=== PATIENT | female | born 2000 | race Caucasian/White ===

== ENCOUNTER 2021-08-11 07:30 | Inpatient (IN) | payer OTHER ==
[2021-08-11 09:14] LABS: BASO % 0.5 % (0-2.0); EOS % 1.2 % (0-4.5); HEMATOCRIT 36.7 % (32.4-45.2); HEMOGLOBIN 12.3 GM/dL (10.7-15.3); LYMPH % 26.4 % (8-40); MCH 27.8 pg (25.7-33.7); MCHC 33.6 g/dl (32.0-36.0); MEAN CELL VOLUME 82.8 fl (80-96); MEAN PLT VOLUME 8.6 fl (7.5-11.1); MONO % 6.2 % (3.8-10.2); NEUT % 65.7 % (42.8-82.8); PLATELET COUNT 323 10^3/uL (134-434); RBC 4.44 M/mm3 (3.60-5.2); RDW 14.9 % (11.6-15.6); WHITE BLOOD COUNT 10.8 K/mm3 (4.0-10.0)
[2021-08-11 09:21] LABS: INR 0.89 (0.83-1.09); PROTHROMBIN TIME (PATIENT) 10.4 SEC (9.7-13.0)
[2021-08-11 09:23] LABS: ACTIVATED PTT 32.7 SECONDS (25.2-36.5)
[2021-08-11 09:32] VITALS: BMI 45.3
[2021-08-11 09:36] LABS: CALCIUM 8.9 mg/dL (8.5-10.1)
[2021-08-11 09:37] LABS: BLOOD UREA NITROGEN 11.6 mg/dL (7-18)
[2021-08-11 09:40] LABS: CREATININE 0.5 mg/dL (0.55-1.3)
[2021-08-11] MEDS ORDERED: AMPICILLIN SODIUM 2 GM VIAL ONE (10:24)
[2021-08-11] MEDS ORDERED: AMPICILLIN - 2 GM in SODIUM CHLORIDE 100 ML IVPB ONE (10:30)
[2021-08-11] MEDS ORDERED: FENTANYL/BUPIVACAINE/NS/PF - PCEA - 50 ML DISP.SYRIN EP ONE ×3 (11:30→16:18)
[2021-08-11] MEDS ORDERED: PCA PUMP NR ONE (11:30)
[2021-08-11] MEDS ORDERED: NALOXONE HCL 0.4 MG/ML VIAL IVPUSH PRN (12:20)
[2021-08-11] MEDS ORDERED: OXYTOCIN 30 UNITS in 0.9% NS 30 UNIT/500 ML INFUS.BAG IVPB ONE (12:23)
[2021-08-11] MEDS ORDERED: FENTANYL/BUPIVACAINE/NS/PF - PCEA - 50 ML DISP.SYRIN EP SCH (12:30)
[2021-08-11] MEDS: PRENATAL VITAMINS W/ FOLIC ACID TABLET (FP) PO SCH (12:40)
[2021-08-11 13:11] LABS: HIV INTERPRETATION NEGATIVE (NEGATIVE)
[2021-08-11] MEDS ORDERED: OXYTOCIN 30 UNITS in 0.9% NS 30 UNIT/500 ML INFUS.BAG IVPB SCH (13:45)
[2021-08-11] MEDS ORDERED: AMPICILLIN - 1 GM in SODIUM CHLORIDE 100 ML IVPB SCH (14:30)
[2021-08-11] MEDS ORDERED: BUPIVACAINE HCL/PF 0.25% (2.5MG/ML) 10 ML VIAL ONE (16:17)
[2021-08-11] MEDS ORDERED: OXYTOCIN 20 UNITS in 0.9% NS 20 UNIT/1,000 ML INFUS.BAG IV ONE ×2 (17:30→21:51)
[2021-08-11] MEDS ORDERED: BENZOCAINE 20% 57 GM BOTTLE TP PRN (18:55)
[2021-08-11] MEDS ORDERED: IBUPROFEN 600 MG TABLET (FP) PO PRN (18:55)
[2021-08-11] MEDS ORDERED: ACETAMINOPHEN 325 MG TABLET (FP) PO PRN (18:55)
[2021-08-11] MEDS ORDERED: oxyCODONE HCL 5 MG TABLET PO PRN (18:55)
[2021-08-11] MEDS ORDERED: BISACODYL 10 MG SUPP.RECT RC PRN (18:55)
[2021-08-11] MEDS ORDERED: WITCH HAZEL 50% (TUCKS) 40 PAD/JAR PAD TP PRN (18:55)
[2021-08-11] MEDS ORDERED: BENZOCAINE 28 GM HEMORRHOIDAL OINTMENT TP PRN (18:55)
[2021-08-11] MEDS ORDERED: OXYTOCIN 20 UNITS in 0.9% NS 20 UNIT/1,000 ML INFUS.BAG IV SCH (19:00)
[2021-08-11 19:05] LABS: CORD BASE EXCESS -11.8 mmol/L (0-2); CORD BASE EXCESS -12.2 mmol/L (0-2); CORD HCO3 17.7 mmHg (20-29); CORD HCO3 19.2 mmHg (20-29); CORD PCO2 67.9 mmHg (30-78); CORD pH 7.069 (7.14-7.44); CORD pH 7.134 (7.14-7.44)
[2021-08-11] MEDS ORDERED: oxyCODONE HCL 5 MG TABLET ONE (19:32)
[2021-08-11] MEDS ORDERED: METHYLERGONOVINE MALEATE 0.2 MG/1 ML AMP IM ONE (19:45)
[2021-08-11 21:18] LABS: HEMATOCRIT 30.4 % (32.4-45.2); MCH 27.4 pg (25.7-33.7); MCHC 32.8 g/dl (32.0-36.0); MEAN CELL VOLUME 83.5 fl (80-96); MEAN PLT VOLUME 8.6 fl (7.5-11.1); PLATELET COUNT 318 10^3/uL (134-434); RBC 3.65 M/mm3 (3.60-5.2); RDW 14.9 % (11.6-15.6); WHITE BLOOD COUNT 20.4 K/mm3 (4.0-10.0)
[2021-08-11 22:59] LABS: ANISOCYTOSIS 0; HELMET CELLS 0; HOWELL-JOLLY BODIES 0; MACROCYTOSIS 0; OVALOCYTE 0; PLATELET ESTIMATE NORMAL; ROULEAU 0; SICKELED CELLS 0; TARGET CELLS 0; TEAR DROP CELLS 0; TOXIC GRANULATION 0
[2021-08-12 08:52] LABS: BASO % 0.2 % (0-2.0); EOS % 0.3 % (0-4.5); HEMATOCRIT 22.4 % (32.4-45.2); HEMOGLOBIN 7.3 GM/dL (10.7-15.3); LYMPH % 23.3 % (8-40); MCH 27.4 pg (25.7-33.7); MCHC 32.8 g/dl (32.0-36.0); MEAN CELL VOLUME 83.4 fl (80-96); MEAN PLT VOLUME 8.5 fl (7.5-11.1); MONO % 7.4 % (3.8-10.2); NEUT % 68.8 % (42.8-82.8); PLATELET COUNT 255 10^3/uL (134-434); RBC 2.68 M/mm3 (3.60-5.2); RDW 15.3 % (11.6-15.6); WHITE BLOOD COUNT 15.3 K/mm3 (4.0-10.0)
[2021-08-12] MEDS: PRENATAL VITAMINS W/ FOLIC ACID TABLET (FP) PO SCH (09:13)
[2021-08-12] MEDS ORDERED: SENNOSIDES/DOCUSATE COMBO (SENNA PLUS) TABLET (UD) PO PRN (22:00)
[2021-08-12 23:57] LABS: BASO % 0.3 % (0-2.0); EOS % 0.8 % (0-4.5); HEMATOCRIT 25.8 % (32.4-45.2); HEMOGLOBIN 8.5 GM/dL (10.7-15.3); LYMPH % 33.9 % (8-40); MCH 27.8 pg (25.7-33.7); MCHC 33.1 g/dl (32.0-36.0); MEAN PLT VOLUME 8.5 fl (7.5-11.1); MONO % 6.3 % (3.8-10.2); NEUT % 58.7 % (42.8-82.8); PLATELET COUNT 226 10^3/uL (134-434); RBC 3.07 M/mm3 (3.60-5.2); RDW 14.8 % (11.6-15.6); WHITE BLOOD COUNT 11.8 K/mm3 (4.0-10.0)
[2021-08-13] MEDS: PRENATAL VITAMINS W/ FOLIC ACID TABLET (FP) PO SCH (09:22)
[2021-08-13 11:32] VITALS: BP 95/65; PULSE 98; TEMP 98.4
== END 2021-08-13 14:10 | disposition home or self-care (01) | DRG 560 ==
LOC: JDEL 07:30 → JLDR 08:45 → J3W 22:24
PROVIDERS: ADMIT Family Medicine; ATTEND Family Medicine
PROC: 0HQ9XZZ Repair Perineum Skin, External Approach (ICD-10-PCS; principal; 2021-08-11)
PROC: 10E0XZZ Delivery of Products of Conception, External Approach (ICD-10-PCS; 2021-08-11)
PROC: 30233N1 Transfusion of Nonautologous Red Blood Cells into Peripheral Vein, Percutaneous Approach (ICD-10-PCS; 2021-08-12)
DX: O70.0 First degree perineal laceration during delivery (principal); Z3A.39 39 weeks gestation of pregnancy; Z37.0 Single live birth
CPT/HCPCS: 36415; 36430; 36600; 59025; 59409; 80048; 82803; 85025; 85610; 85730; 86780; 86850; 86900; 86901; 86922; 87389; C9803; P9058; U0003; U0005

== ENCOUNTER 2022-01-23 15:22 | Emergency (ER) | payer OTHER ==
[2022-01-23 16:04] VITALS: TEMP 99.6; BMI 41.5
[2022-01-23] MEDS ORDERED: SODIUM CHLORIDE 1,000 ML IV STA (16:26)
[2022-01-23] MEDS ORDERED: ONDANSETRON 4 MG/2 ML VIAL IVPUSH ONE (16:27)
[2022-01-23] MEDS ORDERED: ACETAMINOPHEN 1000 MG/100 ML BAG IVPB ONE (16:27)
[2022-01-23] MEDS ORDERED: ONDANSETRON 4 MG/2 ML VIAL ONE (16:48)
[2022-01-23] MEDS ORDERED: ACETAMINOPHEN INJECTION 100 ML IVPB ONE (16:48)
[2022-01-23 17:19] LABS: BASO % 0.3 % (0-2.0); EOS % 0.3 % (0-4.5); HEMATOCRIT 33.2 % (32.4-45.2); HEMOGLOBIN 10.8 GM/dL (10.7-15.3); LYMPH % 13.1 % (8-40); MCH 23.7 pg (25.7-33.7); MCHC 32.6 g/dl (32.0-36.0); MEAN CELL VOLUME 72.6 fl (80-96); MONO % 4.8 % (3.8-10.2); NEUT % 81.5 % (42.8-82.8); PLATELET COUNT 365 10^3/uL (134-434); RBC 4.58 M/mm3 (3.60-5.2); RDW 17.6 % (11.6-15.6); WHITE BLOOD COUNT 10.5 K/mm3 (4.0-10.0)
[2022-01-23 17:24] LABS: HCG,QUALITATIVE URINE Negative
[2022-01-23 17:25] LABS: EPI CELLS >36 /uL (0-25.1); HYALINE CASTS 10 /uL (0-3.1); URINE APPEARANCE TURBID; URINE BACTERIA 6356 /uL (0-1359); URINE BILIRUBIN NEGATIVE (NEGATIVE); URINE COLOR YELLOW; URINE GLUCOSE (UA) NEGATIVE (NEGATIVE); URINE KETONE TRACE (NEGATIVE); URINE LEUK ESTERASE 2+ (NEGATIVE); URINE NITRITE NEGATIVE (NEGATIVE); URINE PROTEIN 1+ (NEGATIVE); URINE RBC 12 /uL (0-23.9); URINE WBC 1093 /uL (0-25.8)
[2022-01-23 17:45] LABS: ALBUMIN 3.3 g/dl (3.4-5.0); CALCIUM 8.7 mg/dL (8.5-10.1)
[2022-01-23 17:48] LABS: CREATININE 0.5 mg/dL (0.55-1.3)
[2022-01-23 17:50] LABS: BILIRUBIN,TOTAL 0.4 mg/dL (0.2-1); TOT PROT 7.5 g/dl (6.4-8.2)
[2022-01-23 18:36] VITALS: BP 110/60; PULSE 18
== END 2022-01-23 18:38 | disposition home or self-care (01) ==
LOC: JER 15:22
PROC: 3E033NZ Introduction of Analgesics, Hypnotics, Sedatives into Peripheral Vein, Percutaneous Approach (ICD-10-PCS; principal; 2022-01-23)
PROC: 3E033GC Introduction of Other Therapeutic Substance into Peripheral Vein, Percutaneous Approach (ICD-10-PCS; 2022-01-23)
PROC: 3E0337Z Introduction of Electrolytic and Water Balance Substance into Peripheral Vein, Percutaneous Approach (ICD-10-PCS; 2022-01-23)
DX: K52.9 Noninfective gastroenteritis and colitis, unspecified (principal); N39.0 Urinary tract infection, site not specified
CPT/HCPCS: 36415; 80053; 81003; 83690; 84703; 85025; 87086; 99284-25

== ENCOUNTER 2022-03-10 15:01 | Emergency (ER) | payer OTHER ==
[2022-03-10 15:18] VITALS: BP 92/60; PULSE 76; TEMP 98.5; BMI 46.3
[2022-03-10 16:35] LABS: BASO % 0.3 % (0-2.0); EOS % 1.4 % (0-4.5); HEMATOCRIT 32.8 % (32.4-45.2); HEMOGLOBIN 10.8 GM/dL (10.7-15.3); LYMPH % 28.9 % (8-40); MCH 24.1 pg (25.7-33.7); MCHC 32.8 g/dl (32.0-36.0); MEAN CELL VOLUME 73.4 fl (80-96); MONO % 5.5 % (3.8-10.2); NEUT % 63.9 % (42.8-82.8); PLATELET COUNT 411 10^3/uL (134-434); RBC 4.46 M/mm3 (3.60-5.2); RDW 18.8 % (11.6-15.6); WHITE BLOOD COUNT 10.7 K/mm3 (4.0-10.0)
[2022-03-10 16:40] LABS: HCG,QUALITATIVE URINE Negative
[2022-03-10 16:41] LABS: EPI CELLS >36 /uL (0-25.1); HYALINE CASTS 14 /uL (0-3.1); URINE APPEARANCE TURBID; URINE BACTERIA 761 /uL (0-1359); URINE BILIRUBIN 1+ (NEGATIVE); URINE COLOR RED; URINE GLUCOSE (UA) NEGATIVE (NEGATIVE); URINE KETONE NEGATIVE (NEGATIVE); URINE LEUK ESTERASE 1+ (NEGATIVE); URINE NITRITE NEGATIVE (NEGATIVE); URINE PROTEIN 3+ (NEGATIVE); URINE RBC 1088 /uL (0-23.9); URINE UROBILINOGEN 0.2 mg/dL (0.2-1.0); URINE WBC 48 /uL (0-25.8)
[2022-03-10 17:18] LABS: BLOOD UREA NITROGEN 10.1 mg/dL (7-18); CALCIUM 8.9 mg/dL (8.5-10.1)
[2022-03-10 17:19] LABS: ALBUMIN 3.4 g/dl (3.4-5.0)
[2022-03-10 17:22] LABS: CREATININE 0.5 mg/dL (0.55-1.3)
[2022-03-10 17:24] LABS: BILIRUBIN,TOTAL 0.2 mg/dL (0.2-1); TOT PROT 7.7 g/dl (6.4-8.2)
== END 2022-03-10 19:37 | disposition home or self-care (01) ==
LOC: JER 15:01
DX: O20.9 Hemorrhage in early pregnancy, unspecified (principal); Z3A.09 9 weeks gestation of pregnancy
CPT/HCPCS: 36415; 76817-TC; 80053; 81003; 84702; 84703; 85025; 86850; 86900; 86901; 87086; 87491; 87591; 99284-25

== ENCOUNTER 2022-06-28 22:48 | Emergency (ER) | payer OTHER ==
[2022-06-28 23:04] VITALS: BP 101/68; PULSE 95; RESP 17; TEMP 98.7; BMI 41.5
[2022-06-29] MEDS ORDERED: DEXAMETHASONE LIQUID 0.5 MG/5 ML PO ONE (05:36)
[2022-06-29] MEDS ORDERED: IBUPROFEN 600 MG TABLET (FP) PO ONE (05:36)
[2022-06-29] MEDS ORDERED: DEXAMETHASONE SOD PHOSPHATE 10 MG/1 ML VIAL ONE (05:42)
[2022-06-29] MEDS ORDERED: IBUPROFEN 400 MG TABLET (FP) PO ONE (05:42)
== END 2022-06-29 05:54 | disposition home or self-care (01) ==
LOC: JER 22:48
DX: J02.9 Acute pharyngitis, unspecified (principal)
CPT/HCPCS: 99283-25

== ENCOUNTER 2023-01-08 17:03 | Emergency (ER) | payer OTHER ==
[2023-01-08 17:26] VITALS: BP 116/75; PULSE 100; RESP 18; TEMP 98.3; BMI 45.3
[2023-01-08] MEDS ORDERED: DIPHTH,PERTUSS(ACELL),TET 0.5 ML DISP.SYRIN IM ONE ×2 (18:03→18:28)
== END 2023-01-08 19:47 | disposition home or self-care (01) ==
LOC: JER 17:03
PROC: 0HQFXZZ Repair Right Hand Skin, External Approach (ICD-10-PCS; principal; 2023-01-08)
PROC: 3E0234Z Introduction of Serum, Toxoid and Vaccine into Muscle, Percutaneous Approach (ICD-10-PCS; 2023-01-08)
DX: O9A.213 Injury, poisoning and certain other consequences of external causes complicating pregnancy, third trimester (principal); S61.411A Laceration without foreign body of right hand, initial encounter; W25.XXXA Contact with sharp glass, initial encounter; Y93.G1 Activity, food preparation and clean up; Z3A.28 28 weeks gestation of pregnancy
CPT/HCPCS: 12002-25; 73130-TC-RT-FY; 90471; 90715; 99283-25

== ENCOUNTER 2023-01-23 11:05 | Emergency (ER) | payer OTHER ==
[2023-01-23 11:10] VITALS: BP 100/67; PULSE 93; RESP 18; TEMP 97.8; BMI 44.1
[2023-01-23] MEDS ORDERED: BACITRACIN ZINC 15 GM TUBE TOPICAL OINTMENT TP ONE (11:47)
[2023-01-23] MEDS ORDERED: BACITRACIN ZINC 15 GM TUBE TOPICAL OINTMENT ONE (11:58)
== END 2023-01-23 12:03 | disposition home or self-care (01) ==
LOC: JERFT 11:05
DX: Z48.02 Encounter for removal of sutures (principal)
CPT/HCPCS: 99281-25

== ENCOUNTER 2023-04-15 12:43 | Inpatient (IN) | payer OTHER ==
[2023-04-15] MEDS: ELECTROLYTE-148 SOLN 1,000 ML IV SCH ×2 (17:30→21:00)
[2023-04-15 17:49] VITALS: BMI 45.5
[2023-04-15] MEDS ORDERED: OXYTOCIN 30 UNITS in 0.9% NS 30 UNIT/500 ML INFUS.BAG IVPB ONE (18:55)
[2023-04-15] MEDS ORDERED: OXYTOCIN 30 UNITS in 0.9% NS 30 UNIT/500 ML INFUS.BAG IVPB SCH (19:00)
[2023-04-15] MEDS ORDERED: BUTORPHANOL TARTRATE 1 MG/ML VIAL IVPUSH ONE (19:05)
[2023-04-15] MEDS ORDERED: PROMETHAZINE HCL 25 MG/1 ML VIAL IVPB ONE (19:06)
[2023-04-15 20:35] LABS: BASO % 0.2 % (0-2.0); EOS % 0.3 % (0-4.5); HEMATOCRIT 34.3 % (32.4-45.2); HEMOGLOBIN 10.8 GM/dL (10.7-15.3); INR 1.03 (0.83-1.09); LYMPH % 19.4 % (8-40); MCHC 31.4 g/dl (32.0-36.0); MEAN CELL VOLUME 76.4 fl (80-96); MEAN PLT VOLUME 9.2 fl (7.5-11.1); MONO % 4.5 % (3.8-10.2); NEUT % 75.6 % (42.8-82.8); PLATELET COUNT 368 10^3/uL (134-434); PROTHROMBIN TIME (PATIENT) 11.9 SEC (9.7-13.0); RDW 16.8 % (11.6-15.6)
[2023-04-15 20:37] LABS: ACTIVATED PTT 31.4 SECONDS (25.2-36.5)
[2023-04-15 20:38] LABS: CALCIUM 8.3 mg/dL (8.5-10.1)
[2023-04-15 20:39] LABS: BLOOD UREA NITROGEN 6.7 mg/dL (7-18)
[2023-04-15 20:40] LABS: POTASSIUM 3.7 mmol/L (3.5-5.1)
[2023-04-15 20:42] LABS: CREATININE 0.5 mg/dL (0.55-1.3)
[2023-04-15] MEDS ORDERED: BUTORPHANOL TARTRATE 1 MG/ML VIAL ONE (20:42)
[2023-04-15] MEDS ORDERED: PROMETHAZINE HCL 25 MG/1 ML VIAL ONE (20:43)
[2023-04-15] MEDS ORDERED: OXYTOCIN 20 UNITS in 0.9% NS 20 UNIT/1,000 ML INFUS.BAG IV ONE (20:49)
[2023-04-15] MEDS ORDERED: oxyCODONE HCL 5 MG TABLET PO PRN (23:39)
[2023-04-15] MEDS ORDERED: METHYLERGONOVINE MALEATE 0.2 MG/1 ML AMP IM PRN (23:39)
[2023-04-15] MEDS ORDERED: BISACODYL 10 MG SUPP.RECT RC PRN (23:39)
[2023-04-15] MEDS ORDERED: WITCH HAZEL 50% (TUCKS) 40 PAD/JAR PAD TP PRN (23:39)
[2023-04-15] MEDS ORDERED: BENZOCAINE 20% 57 GM BOTTLE TP PRN (23:39)
[2023-04-15] MEDS ORDERED: BENZOCAINE 28 GM HEMORRHOIDAL OINTMENT TP PRN (23:39)
[2023-04-15] MEDS ORDERED: ACETAMINOPHEN 325 MG TABLET (FP) PO PRN (23:39)
[2023-04-15] MEDS: IBUPROFEN 600 MG TABLET (FP) PO PRN (23:45)
[2023-04-15] MEDS ORDERED: OXYTOCIN 20 UNITS in 0.9% NS 20 UNIT/1,000 ML INFUS.BAG IV SCH (23:45)
[2023-04-16 00:31] LABS: CORD BASE EXCESS -1.8 mmol/L (0-2); CORD HCO3 22.4 mmHg (20-29); CORD PCO2 36.8 mmHg (30-78); CORD pH 7.403 (7.14-7.44)
[2023-04-16 07:58] LABS: BASO % 0.2 % (0-2.0); EOS % 0.1 % (0-4.5); HEMATOCRIT 31.4 % (32.4-45.2); HEMOGLOBIN 9.7 GM/dL (10.7-15.3); LYMPH % 18.1 % (8-40); MCH 23.8 pg (25.7-33.7); MCHC 31.1 g/dl (32.0-36.0); MEAN CELL VOLUME 76.7 fl (80-96); MEAN PLT VOLUME 9.2 fl (7.5-11.1); NEUT % 75.6 % (42.8-82.8); PLATELET COUNT 335 10^3/uL (134-434); RBC 4.09 M/mm3 (3.60-5.2); RDW 16.7 % (11.6-15.6); WHITE BLOOD COUNT 14.8 K/mm3 (4.0-10.0)
[2023-04-16 08:43] VITALS: RESP 18
[2023-04-16] MEDS ORDERED: DIPHTH,PERTUSS(ACELL),TET 0.5 ML DISP.SYRIN IM ONE (10:00)
[2023-04-16] MEDS: IBUPROFEN 600 MG TABLET (FP) PO PRN ×2 (13:08→19:32)
[2023-04-16 17:53] VITALS: TEMP 97.9
[2023-04-16] MEDS ORDERED: SENNOSIDES/DOCUSATE COMBO (SENNA PLUS) TABLET (UD) PO PRN (22:00)
[2023-04-17 08:01] VITALS: BP 101/69; PULSE 74
== END 2023-04-17 14:40 | disposition home or self-care (01) | DRG 560 ==
LOC: JDEL 12:43 → JLDR 16:50 → J3W 04-16 01:28
PROVIDERS: ADMIT Family Medicine; ATTEND Family Medicine
PROC: 10E0XZZ Delivery of Products of Conception, External Approach (ICD-10-PCS; principal; 2023-04-15)
PROC: 0HQ9XZZ Repair Perineum Skin, External Approach (ICD-10-PCS; 2023-04-15)
DX: O70.0 First degree perineal laceration during delivery (principal); Z3A.40 40 weeks gestation of pregnancy; Z37.0 Single live birth
CPT/HCPCS: 36415; 36600; 59025; 76819-TC; 80048; 82803; 85025; 85610; 85730; 86780; 86850; 86900; 86901; 90715

== ENCOUNTER 2024-02-08 13:52 | Inpatient (IN) | payer OTHER ==
[2024-02-08] MEDS: ELECTROLYTE-148 SOLN 1,000 ML IV SCH (14:15)
[2024-02-08] MEDS: AMPICILLIN - 2 GM in SODIUM CHLORIDE 100 ML IVPB ONE (14:19)
[2024-02-08] MEDS ORDERED: AMPICILLIN SODIUM 2 GM VIAL ONE (14:19)
[2024-02-08] MEDS ORDERED: OXYTOCIN 20 UNITS in 0.9% NS 20 UNIT/1,000 ML INFUS.BAG IV ONE ×2 (14:22→16:36)
[2024-02-08] MEDS: OXYTOCIN 20 UNITS in 0.9% NS 20 UNIT/1,000 ML INFUS.BAG IV SCH (14:29)
[2024-02-08] MEDS ORDERED: BENZOCAINE 20% 57 GM BOTTLE TP PRN (14:53)
[2024-02-08] MEDS ORDERED: WITCH HAZEL 50% (TUCKS) 40 PAD/JAR PAD TP PRN (14:53)
[2024-02-08] MEDS ORDERED: METHYLERGONOVINE MALEATE 0.2 MG/1 ML AMP IM PRN (14:53)
[2024-02-08] MEDS ORDERED: BISACODYL 10 MG SUPP.RECT RC PRN (14:53)
[2024-02-08] MEDS ORDERED: BENZOCAINE 28 GM HEMORRHOIDAL OINTMENT TP PRN (14:53)
[2024-02-08] MEDS ORDERED: ACETAMINOPHEN 325 MG TABLET (FP) PO PRN (14:53)
[2024-02-08] MEDS ORDERED: oxyCODONE HCL 5 MG TABLET PO PRN (14:53)
[2024-02-08 15:06] LABS: BASO % 0.3 % (0-2.0); EOS % 0.5 % (0-4.5); HEMATOCRIT 32.8 % (32.4-45.2); HEMOGLOBIN 10.4 GM/dL (10.7-15.3); LYMPH % 28.6 % (8-40); MCH 23.3 pg (25.7-33.7); MCHC 31.8 g/dl (32.0-36.0); MEAN CELL VOLUME 73.3 fl (80-96); MEAN PLT VOLUME 8.5 fl (7.5-11.1); NEUT % 64.6 % (42.8-82.8); PLATELET COUNT 385 10^3/uL (134-434); RBC 4.48 M/mm3 (3.60-5.2); RDW 17.5 % (11.6-15.6)
[2024-02-08 15:23] LABS: INR 0.92 (0.83-1.09); PROTHROMBIN TIME (PATIENT) 10.6 SEC (9.7-13.0)
[2024-02-08 15:26] LABS: ACTIVATED PTT 30.9 SECONDS (25.2-36.5)
[2024-02-08 15:30] VITALS: BMI 50.1
[2024-02-08 15:30] LABS: POTASSIUM 3.9 mmol/L (3.5-5.1)
[2024-02-08 15:32] LABS: CALCIUM 8.7 mg/dL (8.5-10.1)
[2024-02-08 15:33] LABS: ALBUMIN 2.4 g/dl (3.4-5.0); BLOOD UREA NITROGEN 8.4 mg/dL (7-18)
[2024-02-08 15:36] LABS: CREATININE 0.5 mg/dL (0.55-1.3)
[2024-02-08 15:38] LABS: BILIRUBIN,TOTAL 0.5 mg/dL (0.2-1); TOT PROT 6.9 g/dl (6.4-8.2)
[2024-02-08 15:57] LABS: HEPATITIS B SURFACE AG MATERN NON-REACTIVE (NONREACTIVE)
[2024-02-08 16:26] LABS: HIV INTERPRETATION NEGATIVE (NEGATIVE)
[2024-02-08] MEDS: IBUPROFEN 600 MG TABLET (FP) PO PRN (16:35)
[2024-02-08] MEDS ORDERED: IBUPROFEN 600 MG TABLET (FP) PO ONE (16:36)
[2024-02-08 17:50] LABS: EPI CELLS 2 /uL (0-25.1); HYALINE CASTS 0 /uL (0-3.1); URINE APPEARANCE CLEAR; URINE BILIRUBIN NEGATIVE (NEGATIVE); URINE COLOR YELLOW; URINE GLUCOSE (UA) NEGATIVE (NEGATIVE); URINE KETONE 1+ (NEGATIVE); URINE LEUK ESTERASE NEGATIVE (NEGATIVE); URINE NITRITE NEGATIVE (NEGATIVE); URINE PROTEIN 2+ (NEGATIVE); URINE RBC 0 /uL (0-23.9); URINE WBC 0 /uL (0-25.8)
[2024-02-08 17:56] LABS: METHADONE, UR NEGATIVE (NEGATIVE); PHENCYCLIDINE,URINE NEGATIVE (NEGATIVE); URINE BENZODIAZEPINES NEGATIVE (NEGATIVE)
[2024-02-08 17:57] LABS: COCAINE, UR NEGATIVE (NEGATIVE); OPIATES, URI NEGATIVE (NEGATIVE); URINE AMPHETAMINES NEGATIVE (NEGATIVE); URINE BARBITURATES NEGATIVE (NEGATIVE)
[2024-02-08 18:00] LABS: URINE BACTERIA 431.2 /uL (0-1359)
[2024-02-09 08:23] LABS: BASO % 0.4 % (0-2.0); EOS % 1.3 % (0-4.5); HEMATOCRIT 28.6 % (32.4-45.2); HEMOGLOBIN 9.1 GM/dL (10.7-15.3); LYMPH % 32.3 % (8-40); MCH 23.3 pg (25.7-33.7); MCHC 31.7 g/dl (32.0-36.0); MEAN CELL VOLUME 73.5 fl (80-96); MEAN PLT VOLUME 8.5 fl (7.5-11.1); MONO % 5.3 % (3.8-10.2); NEUT % 60.7 % (42.8-82.8); PLATELET COUNT 313 10^3/uL (134-434); RDW 17.1 % (11.6-15.6); WHITE BLOOD COUNT 10.9 K/mm3 (4.0-10.0)
[2024-02-09] MEDS: DIPHTH,PERTUSS(ACELL),TET 0.5 ML DISP.SYRIN IM ONE (12:26)
[2024-02-09] MEDS ORDERED: SENNOSIDES/DOCUSATE COMBO (SENNA PLUS) TABLET (UD) PO PRN (22:00)
[2024-02-10 11:14] VITALS: BP 103/68; PULSE 86; RESP 16; TEMP 98.8
== END 2024-02-10 12:15 | disposition home or self-care (01) | DRG 560 ==
LOC: JLDR 13:52 → J3W 16:54
PROVIDERS: ADMIT Obstetrics & Gynecology; ATTEND Obstetrics & Gynecology
PROC: 10E0XZZ Delivery of Products of Conception, External Approach (ICD-10-PCS; principal; 2024-02-08)
DX: O80 Encounter for full-term uncomplicated delivery (principal); Z3A.37 37 weeks gestation of pregnancy; Z37.0 Single live birth
CPT/HCPCS: 36415; 59409; 80048; 80053; 80307; 81003; 85025; 85610; 85730; 86780; 86803; 86850; 86900; 86901; 87340; 87389; 90715